=== PATIENT | female | born 1945 | race Caucasian/White ===

== ENCOUNTER 2016-11-21 11:00 | Inpatient (IN) | payer MEDICARE, OTHER ==
[~2016-11-21] VITALS: Ht 149.9 cm; Wt 93.3 kg
--- NOTE | ~2016-11-21 | HP ---
PATIENT'S NAME: MARIA INES MA [facility] AGE: 71 Y [address] ROOM: [place] [address] LOCATION: GPCU ADMIT DATE: 11/21/2016 History & Physical DISCHARGE DATE: FAMILY PHYSICIAN: PHYSICIAN, UNKNOWN ATTENDING PHYSICIAN: ALLEN WALTER DATE OF SERVICE: CHIEF COMPLAINT: Unstable angina. HISTORY OF PRESENT ILLNESS: This is a 71-year-old female, well known to [facility] Cardiology, and has a history of coronary artery disease, paroxysmal atrial fibrillation, and hypertension, who presented from [place] after she had been evaluated there for complaints of chest pain. The patient reports that she started experiencing chest tightness and sharp pain about two nights ago, which she described as a tightness radiating to her left arm, exacerbated with activity and exertion, and relieved with nitroglycerin. The patient currently still complains of some chest tightness on the left side, but denies shortness of breath, dizziness, or lightheadedness. The patient also denies any nausea, vomiting, diarrhea, or constipation. She denies any urinary symptoms, any fever, or chills. PAST MEDICAL HISTORY: 1. Coronary artery disease. 2. Paroxysmal atrial fibrillation. 3. Hypertension. FAMILY HISTORY: The patient has a family history of coronary artery disease and hypertension in parents. REVIEW OF SYSTEMS: All systems have been reviewed and were all negative, except as mentioned in the HPI. PHYSICAL EXAMINATION: VITAL SIGNS: Stable and afebrile. GENERAL: The patient is awake, alert, and oriented x3, in no acute distress. HEENT: Moist mucous membranes. No conjunctival pallor or scleral icterus was noted. HEART: S1 and S2. Regular rate and rhythm. CHEST: Clear to auscultation bilaterally. ABDOMEN: Soft, nontender, and nondistended, with positive bowel sounds. MUSCULOSKELETAL: No joint swelling or tenderness noted. PATIENT'S NAME: MARIA INES MA [facility] AGE: 71 Y [address] ROOM: [place] [address] LOCATION: GPCU ADMIT DATE: 11/21/2016 History & Physical DISCHARGE DATE: FAMILY PHYSICIAN: PHYSICIAN, UNKNOWN ATTENDING PHYSICIAN: ALLEN WALTER NEUROLOGICAL: Grossly nonfocal. SKIN: Without rash or lesions. LABORATORY DATA AND DIAGNOSTIC STUDIES: EKG and cardiac enzymes done at [place] were all non-diagnostic. ASSESSMENT AND PLAN: 1. Unstable angina. The patient was presenting with typical chest pain symptoms. The patient is going to the [facility]modynamics Teacher with Dr. Hummel this afternoon. The patient is to resume her cardiac medications, pending evaluation with the cardiac cath. 2. Coronary artery disease, to be managed as above. 3. Paroxysmal atrial fibrillation. The patient is on Coumadin at home, and this is to be continued. Her INR, per patient's report was above 3 the last time it was checked. We will have Pharmacy dose her Coumadin. 4. Hypertension. The patient is to continue her home medications as prescribed. 5. Deep venous thrombosis prophylaxis. The patient is on Coumadin for that. MD GORDY FORRESTER/david /[id number] D: 350 T: 510 HISTORY & PHYSICAL
--- NOTE | ~2016-11-21 | CATH ---
Cardiac Diagnostic Report Demographics Patient Name ANIL Rasmussen Gender Female Date of 1945 Age 71 year(s) Patient Number [id number] Date of Study 11/21/2016 Visit Number [id number] Room Number G6[address] [place] [id number] Ht 149.86 cm Wt 97.6 kg Referring Thaliadee Dianna Raza Primary Physician Physician Performing Blakeuguvito Secondary Physician Physician Nuris RAMOS Diagnostic [facility] Assisting Physician Physician Nuris RAMOS Interventional Physician Ios Architect Physician Findings and Conclusions Diagnostic Findings and Conclusion Proximal LAD 30 % stenosis. Two Mid LAD stents patent. Cx/OM and RCA without any obstructive CAD. Patient tolerated the procedure well. Diagnostic Recommendations Continue medical therapy. Patient will be observed overnight. Patient has been instructed to not lift anything more than 5 pounds for 1 week. Aggressive risk factor management. Aggressive medical therapy for coronary artery disease. Cardiac diet . Optimization of medical therapy as an outpatient. Procedure Description The patient was brought to the diagnostic cardiac catheterization-EP laboratory in the fasting, non-sedated state. Informed consent was obtained in the written and verbal form after the risks and benefits were explained. The patient had no further questions and agreed to proceed. The planned puncture-incision site(s) were shaved and prepped with ChloraPrep and draped in the usual sterile manner. Conscious sedation, supplemental oxygen, and pain control medications were delivered by a registered nurse under physician guidance. Surface ECG rhythm, blood pressure measurement, and pulse oximetry were monitored throughout the procedure. Arterial access. The access site was infiltrated with lidocaine. The vessel was entered with the Seldinger technique. A sheath was advanced into the vessel and used for catheter placement. Selective left coronary angiography. A catheter was advanced into the left coronary vessel ostium under Fluoroscopic guidance. Contrast was injected by hand. Images were obtained in multiple projections. Selective right coronary angiography. A catheter was advanced into the right coronary vessel ostium under fluoroscopic guidance. Contrast was injected by hand. Images were obtained in multiple projections. Arterial artery hemostasis was achieved. The patient was transferred to a regular nursing floor via cart accompanied by a nurse. The patient left the laboratory in stable condition. Diagnostic Cath Status: Urgent Procedure Procedure Type Diagnostic procedure:Angiography:, Coronary Angios Indications: Unstable angina, Hypertension, Atrial fibrillation and CAD. The procedure was explained in detail to the patient. Risks, complications and alternative treatments were reviewed. Written consent was obtained. Medications Reviewed with Patient prior to Procedure. Angiographic Findings Dominance: Right Cardiac Arteries and Lesion Findings LMCA: Normal (0% Stenosis). LAD: There is a previous stent on Mid LAD Mid subsection showing wide patency. There is a previous stent on Mid LAD Mid subsection showing wide patency. Lesion on Prox LAD: Proximal subsection.30% stenosis . LCx: Normal (0% Stenosis).OM normal. RCA: Normal (0% Stenosis). Coronary Tree Procedure Data Procedure Date Date: 11/21/2016Start: 01:52 PMEnd: 02:25 PM Entry Locations - Retrograde Percutaneous access was performed through the Left Radial artery (Primary location). A 6 Fr sheath was inserted. Hemostasis was successfully obtained using Mechanical Compression. Closure Comments: 19 ml's in radial band placed by Helen Zendejas.. Procedure Medications Order and Administration + + + +--------+ !Time !Medication !Dosage !Route ! + + + +--------+ !11/21/2016 01:52 PM !Versed !1 mg !I.V. ! + + + +--------+ !11/21/2016 01:52 PM !Fentanyl !50 mcg !I.V. ! + + + +--------+ !11/21/2016 01:58 PM !Fentanyl !25 mcg !I.V. ! + + + +--------+ !11/21/2016 02:02 PM !Heparin (ACC_3) !2500 units !I.V. ! + + + +--------+ Devices Used - A5 Fr. BS JR 4 Diag. Catheterwas used for:Right coronary angiography. - A6 Fr. EBU 3.5 Guide Catheterwas used for:Left coronary angiography. Contrast Material - Isovue 17890 ml Fluoroscopy Dose: Diagnostic: 247 mGy. Total: 247 mGy. Estimated Blood Loss: 10 ml. Medical History Performed Procedures and Imaging Results - No [facility] stress or imaging studies were performed. History of Disease + + + + !Diagnosis !Date !Comments ! + + + + !CAD ! ! ! + + + + !Hypertension ! ! ! + + + + Allergies - Other:(Macrolides, ASA, Codeine, Mobic, Omeprazole, Biaxin, Morphine, Ramipril, Demerol). - Other:(clarithromycin, esomeprazole magnesium, meloxicam, demerol, ramipril, sucralfate, asa, codeine, morphine, omeprazole, macrobid, macrolides). Risk Factors The patient risk factors include:prior PCI on 07/17/2008;obesity, treated hypercholesterolemia, treated hypertension, family history of premature CAD, chronic lung disease, last creatinine: 1 mg/dl, creatinine clearance: 77.2 ml/min, dyslipidemia and prior NC . Admission Data Admission Date: 11/21/2016 Admission Time: 12:08 PM Admit Source: [facility] Insurance Payors: Medicare. Admission Medications + +------+------+ + + + + !Medication !Dosage!Times !Last !Last !Administered !Comments ! ! ! !Per !Delivery !Delivery ! ! ! ! ! !Day !Date !Time ! ! ! + +------+------+ + + + + !JASMYNE ! ! ! ! !Yes ! ! !Inhibitor ! ! ! ! ! ! ! !(any) ! ! ! ! ! ! ! + +------+------+ + + + + !Nitrates (iv! ! ! ! !Yes ! ! !or buccal) ! ! ! ! ! ! ! + +------+------+ + + + + !Warfarin ! ! ! ! !Yes ! ! + +------+------+ + + + + !Beta Shamar! ! ! ! !Yes ! ! !(any) ! ! ! ! ! ! ! + +------+------+ + + + + Clinical Evaluation Leading to Procedure - The patient's CAD presentation was assessed as: Unstable angina. - The patient's anginal syndrome during the past two weeks was assessed as: Class IV according to the [employer] Classification System (CCS). Anti-anginal medications were prescribed during the past two weeks. The medications are: Beta Blockers, Long Acting Nitrates and Ranolazine. - The patient has been in a state of heart failure within the past two weeks. - The patient's heart failure status was assessed as NYHA Class II, with CHF symptoms of MOTT. Hemodynamics Condition: Rest O2 Consumption: Estimated: 170.89Heart Rate: 66 bpm Pressures (mmHg) +-----+ + !Site !Pressure ! +-----+ + !AO !124/60 (87) ! +-----+ + !AO !124/63 (88) ! +-----+ + Shunts Oxygen Values O2 Capacity 180.88 O2 Consumption 170.89 Signatures dtt: NURIS DOUGLAS dtd: 11/21/16 1352 Physician Self Edit
[2016-11-21] MEDS ORDERED: TYLENOL325 MG PO (12:25)
[2016-11-21] MEDS ORDERED: CALCIUM 600 +1 EAC6 PO (12:27)
[2016-11-21] MEDS ORDERED: VITAMIN C1000 MG PO (12:27)
[2016-11-21] MEDS ORDERED: VITAMIN B-12500 MCG PO (12:28)
[2016-11-21] MEDS ORDERED: PEPCID20 MG PO (12:28)
[2016-11-21] MEDS ORDERED: NIACIN SR 250250 MG PO (12:29)
[2016-11-21] MEDS ORDERED: THERAGRAN-M1 TAB PO (12:29)
[2016-11-21] MEDS ORDERED: MAG-OX-400(241400 MG PO (12:29)
[2016-11-21] MEDS ORDERED: FISH OIL 1,0001 EAC3 PO (12:32)
[2016-11-21] MEDS ORDERED: FLECAINIDE ACET50 MG PO (12:33)
[2016-11-21] MEDS ORDERED: RANEXA ER500 MG PO (12:33)
[2016-11-21] MEDS ORDERED: NITROSTAT0.4 MG SL (12:33)
[2016-11-21] MEDS ORDERED: COUMADIN **IA2.5 MG PO ×2 (12:34→12:36)
[2016-11-21] MEDS ORDERED: TRICOR 145 MG145 MG PO (12:37)
[2016-11-21] MEDS ORDERED: ALDACTONE25 MG PO (12:38)
[2016-11-21] MEDS ORDERED: ZEBETA5 MG PO (12:38)
[2016-11-21] MEDS ORDERED: POTASSIUM CHLO10 MEQ PO (12:39)
--- NOTE | 2016-11-21 13:36 | NUR ---
Pt is 71 yo female admitted from [facility] for chest pain which started Monday night. she went to the ER in [place] and was admitted. was planning to go home today, however, the chest pain returned about 8:30 this am. she is then transferred here for evaluation. Pt has saline lock in left upper arm without erythema or edema noted at site. education is given to patient and family, all deny questions. pneumatics are held as pt is on coumadin at this time. call light is within reach, patient denies questions or needs at this time. 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
[2016-11-21 15:32] LABS: INR - (THERAPEUTIC) 3.27 (0.92-1.07); PROTIME 34.8 SECONDS (9.8-11.4)
--- NOTE | 2016-11-21 16:55 | NUR ---
Significant Event: A/OX3, VSS ON ROOM AIR. NO COMPLAINTS OF PAIN. L)RADIAL CATH SITE HAS R-BAND ON, STARTING TO REMOVE AIR, NO OOZING OR HEMATOMA NOTED TO SITE. IV TO LEFT UPPER ARM/SHOULDER AREA HAS NS @ 100mL/HR FOR 2 MORE HOURS. PT. GETS UP SBA TO BATHROOM. HOME MEDS ORDERED. PT. WEARS CPAP @ HS, HOME CPAP IN ROOM. POSSIBLE D/C TO HOME IN AM. NO CHEST PAIN/PRESSURE THIS SHIFT.PT. VOIDS FINE, LAST BM WAS YESTERDAY. Follow up: CONTINUE WITH POC.
[2016-11-22 04:31] LABS: EOSINOPHIL # 0.1 K/uL (0.0-0.5); EOSINOPHIL % 2.1 %; HEMATOCRIT 36.9 % (33.0-46.0); HEMOGLOBIN 11.9 g/dL (10.0-15.0); IMMATURE GRANULOCYTE % 0.3 %; LYMPHOCYTE # 1.1 K/uL (0.8-4.0); LYMPHOCYTE % 31.5 %; MCH 31.2 pg (27.0-34.0); MCHC 32.2 gm/dL (32.0-36.5); MCV 96.6 fl (83.0-98.0); MONOCYTE # 0.4 K/uL (0.0-1.0); MONOCYTE % 11.6 %; MPV 11.1 fl (9.4-12.4); NEUTROPHIL # (ANC) 1.8 K/uL (1.8-7.8); NEUTROPHIL % 54.5 %; NRBC % 0 /100WBC (0-0.00); PLATELET COUNT 114 K/uL (150-450); RBC 3.82 M/uL (3.50-5.50); RDW-CV 13.3 % (11.9-14.6); WBC 3.4 K/uL (4.0-11.0)
--- NOTE | 2016-11-22 04:35 | NUR ---
Pt a/o x4. vss on ra, afebrile. cpap at hs. L radial site benign. wrapped with bandaid and coban. Sba x1. denies pain Plan: Discharge today.
[2016-11-22 04:47] LABS: INR - (THERAPEUTIC) 3.15 (0.92-1.07); PROTIME 33.5 SECONDS (9.8-11.4)
[2016-11-22 04:49] LABS: ALBUMIN 2.8 gm/dL (3.5-5.0); ANION GAP 12.3 (10.0-19.0); BLOOD UREA NITROGEN 18 mg/dL (6-24); CALCIUM 8.3 mg/dL (8.5-10.5); CHLORIDE 105 mMol/L (96-110); CO2 27 mMol/L (22-32); CREATININE 0.9 mg/dL (0.5-1.1); ESTIMATED GFR (MDRD EQUATION) > 60; MAGNESIUM 2.2 mg/dL (1.8-2.6); PHOSPHORUS 2.1 mg/dL (2.5-4.9); POTASSIUM 4.3 mMol/L (3.7-5.1); SODIUM 140 mMol/L (135-145)
--- NOTE | 2016-11-22 11:41 | NUR ---
Introduced self and role of care management to patient. She lives in [place] with her . She states she is able to do all her own ADL's. Her will be available to assist as needed. She plans on returning home on discharge. She denies any needs at this time. Will continue to follow.
--- NOTE | 2016-11-22 13:22 | NUR ---
PATIENT A/OX3, VSS ON ROOM AIR. PT. IS UP AD STAR IN ROOM, WALKED IN HALLS SEVERAL TIMES TODAY. NO COMPLAINTS OF PAIN. LEFT RADIAL CATH SITE DRESSING WAS CHANGED TO JUST A BAND-AID THIS AM, DRESSING C/D/I, NO BRUISING, HEMATOMA, OOZING NOTED TO SITE. IV REMOVED FROM LEFT UPPER ARM/SHOULDER WITHOUT COMPLICATIONS. DISMISSAL INSTRUCTIONS, F/U APTS., RADIAL CATH INSTRUCTIONS GONE OVER WITH PATIENT AND , NO FURTHER QUESTIONS AT THIS TIME. ALL BELONGINGS SENT HOME WITH PATIENT.
== END 2016-11-22 13:13 | disposition disaster alternative care site (69) | DRG 287 ==
LOC: GPCU 12:08
PROVIDERS: ADMIT Internal Medicine
PROC: B2111ZZ Fluoroscopy of Multiple Coronary Arteries using Low Osmolar Contrast (ICD-10-PCS; principal; 2016-11-21)
DX: I25.110 Atherosclerotic heart disease of native coronary artery with unstable angina pectoris (principal); I48.0 Paroxysmal atrial fibrillation; Z68.41 Body mass index [BMI] 40.0-44.9, adult; I10 Essential (primary) hypertension; Z79.01 Long term (current) use of anticoagulants; R79.1 Abnormal coagulation profile; Z82.49 Family history of ischemic heart disease and other diseases of the circulatory system; Z95.5 Presence of coronary angioplasty implant and graft; E78.5 Hyperlipidemia, unspecified; E66.9 Obesity, unspecified; I25.2 Old myocardial infarction; Z85.3 Personal history of malignant neoplasm of breast; J98.4 Other disorders of lung
CPT/HCPCS: C1769; C1887; J0583; J1644; J2250; J3010; J7030

== ENCOUNTER → 2016-12-20 | Outpatient (CLI) | payer MEDICARE, OTHER ==
[~2016-12-20] MED LIST: ALDACTONE25 MG PO; CALCIUM 600 +1 EAC6 PO; COUMADIN **IA2.5 MG PO; FISH OIL 1,0001 EAC3 PO; FLECAINIDE ACET50 MG PO; MAG-OX-400(241400 MG PO; NIACIN SR 250250 MG PO; NITROSTAT0.4 MG SL; PEPCID20 MG PO; POTASSIUM CHLO10 MEQ PO; RANEXA ER500 MG PO; THERAGRAN-M1 TAB PO; TRICOR 145 MG145 MG PO; TYLENOL325 MG PO; VITAMIN B-12500 MCG PO; VITAMIN C1000 MG PO; ZEBETA5 MG PO
--- NOTE | ~2016-12-20 | PUL ---
PATIENT'S NAME: MARIA INES MA [facility] AGE: 71 Y [address] ROOM: [place] [address] LOCATION: GRAD ADMIT DATE: 12/20/2016 Pulmonary DISCHARGE DATE: FAMILY PHYSICIAN: America Garza PA-C ATTENDING PHYSICIAN: Meghana Brizuela NAME OF PROCEDURE: Six Minute Walk Test DATE OF PROCEDURE: December 20, 2016 TECH: JERRY Vu REASON FOR EXAM: Shortness of breath RESULTS: The test was performed on room air. The patient walked for 800 feet at a pace of 1.5 miles/hour. She had one period of rest for 20 seconds. Her oxygen saturation at the beginning of the test was 92%, then dropped to the lowest of 90% during the test, and was 94% after the test. She had minimal increases in her heart rate and appropriate increases in her blood pressure. Her perceived dyspnea was 6/10 on the Holden scale. PHYSICIAN INTERPRETATION: The patient has mild limitation in her exercise capacity without significant desaturation or hypoxia on room air during exercise. MD FAUSTO HAUSER/madison /[id number] dtt: 12/22/16 1218 , LIN MATHEW dtd: 12/22/16 1136
--- NOTE | ~2016-12-20 | PUL ---
PATIENT'S NAME: MARIA INES MA [facility] AGE: 71 Y [address] ROOM: [place] [address] LOCATION: [facility] ADMIT DATE: 12/20/2016 Pulmonary DISCHARGE DATE: FAMILY PHYSICIAN: America Garza PA-C ATTENDING PHYSICIAN: Meghana Brizuela NAME OF PROCEDURE: Pulmonary Function Test DATE OF PROCEDURE: December 20, 2016 TECH: JERRY Vu REASON FOR EXAM: Shortness of breath RESULTS: 1. FVC was 1.27 liters which is 55% of predicted and low, FEV1 was 1.06 liters which is 62% of predicted and low, and FEV1/FVC was 84% and normal. The flow volume curve did not reveal any significant airflow limitation, but was suggestive of restrictive lung disease. After bronchodilator administration FVC increased to 1.33 liters which is a 4% increase and FEV1 increased to 1.16 liters which is a 9% increase. FEV1/FVC was 87%. 2. DLCO and adjusted DLCO were 7.1, which is 34% of predicted and low. 3. Total lung capacity was 2.44 liters which is 65% of predicted and low, and residual volume was 1.02 liters which is 66% of predicted and normal. PHYSICIAN INTERPRETATION: The patient has no airflow limitation and no significant bronchodilator response. Her diffusion capacity is severely low. There is evidence of moderate restrictive lung disease. MD FAUSTO HAUSER/madison /[id number] dtt: 12/22/16 1213 , LIN MATHEW dtd: 12/22/16 1133
== END | disposition disaster alternative care site (69) ==
LOC: GRAD 07:31 → GRTH 09:00
DX: J84.9 Interstitial pulmonary disease, unspecified (principal); J98.11 Atelectasis; I87.8 Other specified disorders of veins; K44.9 Diaphragmatic hernia without obstruction or gangrene; J98.4 Other disorders of lung; J98.6 Disorders of diaphragm; R09.89 Other specified symptoms and signs involving the circulatory and respiratory systems; R06.02 Shortness of breath